=== PATIENT | male | born 1980 | race Caucasian/White ===

== ENCOUNTER 2017-07-30 11:55 | Emergency (ER) | payer BC ==
--- NOTE | 2017-07-30 12:09 | ER Document Report ---
ED Psych Disorder / Suicide - General Chief Complaint: Overdose Stated Complaint: POSSIBLE OVERDOSE Time Seen by Provider: 07/30/17 12:03 Information source: Patient Notes: Patient is a 36-year-old male with psychiatry history as recorded who presents today after the patient around 1030 ingested 60-70 pills 4 mg Zanaflex secondary to having an argument with his . Patient denies any auditory or visual hallucinations. Patient states he takes his psychiatry medications " only once in a while". Patient has a history of depression. Patient denies to me any suicide attempts in the past. Patient states he does feel a little lightheaded. He denies any headache, nausea, vomiting, chest pain, or abdominal pain. EMS provided 25 mg of charcoal as well as 500 cc of normal saline. - HPI Patient complains to provider of: Suicidal attempt, Self injury Onset: Other - See above Onset was: Sudden Quality of pain: No pain Severity: Severe Pain Level: Denies Suicide Risk Factors: Other - See above Situational problems related to: Other - See above Suicide Attempt Method: Overdose Overdose of: Other - See above Normal mood: No Associated symptoms: Depressed, Flat affect Similar symptoms previously: No Recently seen / treated by doctor: Yes - Related Data Allergies/Adverse Reactions: No Known Allergies Allergy (Verified 07/30/17 12:06) Past Medical History - General Information source: Patient - Social History Smoking Status: Unknown if Ever Smoked Cigarette use (# per day): No Chew tobacco use (# tins/day): No Smoking Education Provided: No Frequency of alcohol use: None Drug Abuse: None Family History: Reviewed & Not Pertinent Review of Systems - Review of Systems Constitutional: denies: Fever EENT: denies: Eye discharge, Nose discharge Cardiovascular: denies: Chest pain, Palpitations Respiratory: denies: Short of breath Gastrointestinal: denies: Vomiting Genitourinary: denies: Dysuria Musculoskeletal: denies: Leg swelling Skin: Other - no hives. denies: Rash Neurological/Psychological: Other - no slurred speech -: Yes All other systems reviewed and negative Physical Exam - Vital signs Vitals: Temp Pulse Resp BP Pulse Ox 98.0 F 86 14 112/92 H 98 07/30/17 11:56 07/30/17 11:56 07/30/17 11:56 07/30/17 11:56 07/30/17 11:56 - Notes Notes: Reviewed vital signs and nursing note as charted by RN. CONSTITUTIONAL: Alert and oriented. Is slightly somnolent but answers all questions appropriately. HEAD: Normocephalic; atraumatic EYES: PERRL; no nystagmus noted ENT: Normal nose; no rhinorrhea; moist mucous membranes; pharynx without lesions noted NECK: Supple without meningismus; non-tender; no cervical lymphadenopathy, no masses CARD: Regular rate and rhythm; no murmurs RESP: Normal chest excursion without splinting or tachypnea; breath sounds clear and equal bilaterally ABD/GI: Normal bowel sounds; non-distended; soft, non-tender BACK: The back appears normal and is non-tender to palpation EXT: Normal ROM in all joints; non-tender to palpation; no edema SKIN: Normal color for age and race; no acute lesions noted NEURO: CN II through XII are intact. Moves all extremities equally; Motor and sensory function intact PSYCH: Flat affect. Patient appears depressed. Course - Re-evaluation Re-evalutation: 07/30/17 12:08 Given the above history and physical examination we will order psychiatric laboratory profiles. I will also order a repeat acetaminophen at 2:30 AM. We have contacted [facility] who states that they believe that the patient requires at least 6 hour monitor. They recommend dopamine if his blood pressure falls as well as atropine if his heart rate becomes bradycardic. Psychiatry consult has been ordered. EKG shows heart rate 66, narrow QRS, minimal J-point elevation, no obvious reciprocal changes or depressions. 07/30/17 13:39 Initial labs as recorded. Patient still has no focal neurological deficits. Repeat Tylenol is pending at 2:20 PM. 07/30/17 16:49 Labs as well as repeat Tylenol level have come back unremarkable. The psychology team is seen and evaluated the patient and have provided medication recommendations. Patient will spend the night overnight and we will reassess the patient's mental status tomorrow. - Vital Signs Vital signs: Temp Pulse Resp BP Pulse Ox 98.0 F 86 23 H 100/62 95 07/30/17 11:56 07/30/17 11:56 07/30/17 16:01 07/30/17 16:00 07/30/17 16:01 - Laboratory Result Diagrams: 07/30/17 12:00 07/30/17 12:00 Laboratory results interpreted by me: 07/30/17 07/30/17 07/30/17 12:00 12:00 13:53 WBC 11.8 H RDW 14.5 H Lymphocytes % 12.7 L Absolute Neutrophils 9.1 H Potassium 5.4 H Glucose 155 H Total Protein 5.6 L Albumin 3.4 L Urine Glucose (UA) 50 H Salicylates < 1.0 L Acetaminophen < 10 L 07/30/17 14:30 WBC RDW Lymphocytes % Absolute Neutrophils Potassium Glucose Total Protein Albumin Urine Glucose (UA) Salicylates Acetaminophen < 10 L Critical Care Note - Critical Care Note Total time excluding time spent on procedures (mins): 35 Discharge - Discharge Clinical Impression: Suicide attempt Condition: Fair Disposition: PSYCH HOSP/UNIT
[2017-07-30 12:17] LABS: ABSOLUTE EOSINOPHILS # (AUTO) 0.2 10^3/uL (0.0-0.6); ABSOLUTE LYMPHOCYTES (AUTO) 1.5 10^3/uL (0.5-4.7); ABSOLUTE NEUT (AUTO) 9.1 10^3/uL (1.7-8.2); BASOPHILS % (AUTO) 0.3 % (0-2); EOSINOPHILS % (AUTO) 1.6 % (0-6); HEMATOCRIT 46.1 % (37.9-51.0); HEMOGLOBIN 15.2 g/dL (13.5-17.0); LYMPHOCYTES % (AUTO) 12.7 % (13-45); MEAN CORPUSCULAR HEMOGLOBIN 30.3 pg (27.0-33.4); MEAN CORPUSCULAR VOLUME 92 fl (80-97); MONOCYTES % (AUTO) 8.3 % (3-13); PLATELET COUNT 315 10^3/uL (150-450); RED BLOOD COUNT 5.01 10^6/uL (4.35-5.55); RED CELL DISTRIBUTION WIDTH 14.5 % (11.5-14.0); SEGMENTED NEUTROPHILS % (AUTO) 77.1 % (42-78); TOTAL CELLS COUNTED % (AUTO) 100 %; WHITE BLOOD COUNT 11.8 10^3/uL (4.0-10.5)
[2017-07-30 12:36] LABS: ALANINE AMINOTRANSFERASE 46 U/L (21-72); ALBUMIN 3.4 g/dL (3.5-5.0); ALKALINE PHOSPHATASE 54 U/L (38-126); ANION GAP 11 (5-19); ASPARTATE AMINO TRANSFERASE 27 U/L (17-59); BILIRUBIN,DIRECT 0.2 mg/dL (0.0-0.4); BILIRUBIN,TOTAL 0.4 mg/dL (0.2-1.3); BLOOD UREA NITROGEN 15 mg/dL (7-20); CALCIUM 9.1 mg/dL (8.4-10.2); CARBON DIOXIDE 26 mmol/L (22-30); CHLORIDE 106 mmol/L (98-107); GLUCOSE 155 mg/dL (75-110); POTASSIUM 5.4 mmol/L (3.6-5.0); SODIUM 142.5 mmol/L (137-145); TOTAL PROTEIN 5.6 g/dL (6.3-8.2)
[2017-07-30 12:37] LABS: ACETAMINOPHEN < 10 ug/mL (10-30); ALCOHOL < 10 mg/dL (NONE DETECTED); SALICYLATE < 1.0 mg/dL (2.0-20.0)
[2017-07-30] MEDS ORDERED: NICOTINE 21 MG/24 HR PATCH.TD24 TD ONE (13:45)
--- NOTE | 2017-07-30 14:14 | EKG REPORT ---
SEVERITY:- NORMAL ECG - SINUS RHYTHM ST ELEV, PROBABLE NORMAL EARLY REPOL PATTERN : Confirmed by: Gilberto Freitas MD 30-Jul-2017 14:13:59
--- NOTE | 2017-07-30 14:15 | PSYCHOLOGICAL NOTE ---
Psych Note - Psych Note Psych Note: Reason for consult: Intentional overdose Consent permissions: , Julienne [phone] Patient is a 36-year-old male with psychiatry history as recorded who presents today after the patient around 1030 ingested 60-70 pills 4 mg Zanaflex secondary to having an argument with his . Patient denies any auditory or visual hallucinations. Patient states he takes his psychiatry medications " only once in a while". Patient has a history of depression. Patient denies to me any suicide attempts in the past. Patient disclosed that he came to [facility] because he was "hard headed and stubborn... Did not use my coping skills." He disclosed that he woke up early in the morning with his being very angry saying that she was going to take the kids and leave; "I see friends with no or kids and they are just so lost and broken when she said that... My heart just dropped... I just walked into the bathroom shut the door and took the medication... I remember thinking why the fuck did I just do that... But that is just it, I was not thinking." Patient reports that while he was sitting in the bathroom staring at the bottle his force her way into the bathroom and saw what he had done. Patient's is the one that called 911. He denies any previous attempts in stating "I know this sounds crazy but it has been better lately... I have been doing better." Patient states that he regrets what he did and was very glad he did not "I cannot leave my kids... I went the wrong route for sure." Patient discloses he has diagnosis of PTSD, major depressive disorder, major anxiety disorder. 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 He reports he talks to a crisis counselor daily through the [employer] and [facility] [place] Patient denies history of substance abuse however discloses that he stopped drinking in January. Patient disclosed that "my said we will work things out... I got enough stuff that I am trying to work out... cannot handle that right now." Patient's disclosed that the patient and her had been arguing. She disclosed patient has no previous attempts and that he has been doing better just recently. Patient states she never said she was going to take the kids and leave however she did state "I was done..I'm just done...honestly, ya it's headed that way." (Clinician notes patient became agitated and slightly tearful. He started to disclose that he needed to leave). Patient disclosed "I have done this before I cannot do it again...I can't sit here....I will leave...I will fight if I have to." Patient clarified he received 30 day alcohol treatment in January and has been sober since. Patient is alert and orientated to person, place, time and circumstance. 309.81 (F43.10) posttraumatic stress disorder per history provided by patient 296.20 (F32.9) major depressive disorder; unspecified per history provided by patient 300.00 (F41.9) unspecified anxiety disorder per history provided by patient 291.9 (F10.99) unspecified alcohol related disorder; currently sober since January Impression\\plan: Patient is recommended for IVC. Patient intentionally overdose with intent to kill himself. Patient discloses feeling much better recently; patient's attempt is congruent with known major depressive disorder suffering. Research identifies highest level of suicide attempts occur once patient starts initially feeling better. Patient's trigger of possibly losing his family was confirmed by which point the patient demonstrated continued difficulties in controlling his impulses (ie. threaten to leave and stating will fight staff to leave).
[2017-07-30 15:12] LABS: APPEARANCE,URINE CLEAR; BILIRUBIN,URINE NEGATIVE (NEGATIVE); COLOR,URINE YELLOW; GLUCOSE, URINE 50 mg/dL (NEGATIVE); KETONES,URINE NEGATIVE (NEGATIVE); LEUKOCYTE ESTERASE,URINE NEGATIVE (NEGATIVE); NITRITE,URINE NEGATIVE (NEGATIVE); PROTEIN,URINE NEGATIVE (NEGATIVE); URINE SPECIFIC GRAVITY 1.019; UROBILINOGEN,URINE NEGATIVE mg/dL (<2.0)
[2017-07-30 15:46] LABS: URINE AMPHETAMINES SCREEN NEGATIVE; URINE BARBITURATES SCREEN NEGATIVE; URINE BENZODIAZEPINES SCREEN NEGATIVE; URINE COCAINE SCREEN NEGATIVE; URINE MARIJUANA (THC) SCREEN UNCONFIRMED POSITIVE; URINE METHADONE SCREEN NEGATIVE; URINE PHENCYCLIDINE SCREEN NEGATIVE
[2017-07-30] MEDS ORDERED: VENLAFAXINE HCL 37.5 MG CAP.SR.24H PO SCH (17:00)
[2017-07-30] MEDS ORDERED: VENLAFAXINE HCL 37.5 MG CAP.SR.24H PO ONE ×2 (17:30→17:31)
[2017-07-30] MEDS: BUSPIRONE HCL 10 MG TABLET PO SCH (17:43)
[2017-07-31] MEDS: GABAPENTIN 400 MG CAPSULE PO SCH ×2 (00:46→09:45)
[2017-07-31] MEDS: IBUPROFEN 600 MG TABLET PO SCH ×2 (00:46→04:54)
[2017-07-31] MEDS: BUSPIRONE HCL 10 MG TABLET PO SCH (09:46)
--- NOTE | 2017-07-31 09:52 | ER Document Report ---
Doctor's Note Notes: 07/31/17 09:51 36-year-old male who took an overdose of tablets yesterday after hearing that his may be leaving him. Patient is very regrettable about that decision. The psychology team is seen and evaluated the patient and does not believe that the patient qualifies for IVC placement at this time. They are comfortable with the patient going home. They would like me to start the patient on Effexor and BuSpar. They have called the patient's who is very comfortable with the patient going home. Given that we do not have the option for inpatient psychology placement at this facility, with her expert psychology PhD psychologist recommendation, patient will be discharged home with the appropriate medications with follow-up as an outpatient.
[2017-07-31] MEDS ORDERED: BUPROPION HCL 75 MG TABLET PO SCH (10:00)
[2017-07-31] MEDS ORDERED: VENLAFAXINE HCL 37.5 MG CAP.SR.24H PO SCH (10:00)
[2017-07-31 10:43] VITALS: BP 128/86
== END 2017-07-31 10:40 | disposition home or self-care (01) ==
LOC: ER 11:55
DX: T42.8X2A Poisoning by antiparkinsonism drugs and other central muscle-tone depressants, intentional self-harm, initial encounter (principal); R42 Dizziness and giddiness; R40.0 Somnolence; Z63.0 Problems in relationship with spouse or partner; F32.9 Major depressive disorder, single episode, unspecified
CPT/HCPCS: 93005; 99285; 36415; 80307 ×4; 85025; 80053; 81001; 93010; J3490 ×2